=== PATIENT | male | born 1950 | race Caucasian/White ===

== ENCOUNTER 2017-09-15 19:47 | Emergency (ER) | payer OTHER, MEDICARE ==
[2017-09-15 19:55] VITALS: BP 170/93; PULSE 98; RESP 20; TEMP 98.6; O2SAT 99
--- NOTE | 2017-09-15 20:35 | EDPHY ---
H & P Stated Complaint: Concerned for DVT Time Seen by Provider: 09/15/17 19:50 - Personal History Current Tetanus Diphtheria and Acellular Pertussis (TDAP): Yes - Medical/Surgical History Hx Asthma: No Hx Chronic Respiratory Disease: No Hx Diabetes: No Hx Cardiac Disease: Yes Hx Renal Disease: No Hx Cirrhosis: No Hx Alcoholism: No Hx HIV/AIDS: No Hx Splenectomy or Spleen Trauma: No Other PMH: GERD, coronary athlerscierlosis - Social History Smoking Status: Never smoked Constitutional: Initial Vital Signs Temperature (C) 37.0 C 09/15/17 19:53 Heart Rate 98 09/15/17 19:53 Respiratory Rate 20 09/15/17 19:53 Blood Pressure 170/93 H 09/15/17 19:53 O2 Sat (%) 99 09/15/17 19:53 O2 Delivery Mode Room Air Allergies/Adverse Reactions: No Known Allergies Allergy (Unverified 09/15/17 19:50) Home Medications: Medication Instructions Recorded Aspirin 09/15/17 Carvedilol 09/15/17 Chromium 09/15/17 Cialis 09/15/17 Cinnamon 09/15/17 Endur-Acin 09/15/17 Fish Oil 1,000 mg Capsule 09/15/17 Irbesartan 09/15/17 Potassium Chloride [Klor-Con] 09/15/17 Medical Decision Making - Diagnostics Imaging: Discussed imaging studies w/ call or contact centre operator Radiologist ED Course/Re-evaluation: CHIEF COMPLAINT: Swollen left leg HISTORY OF PRESENT ILLNESS: The patient is a 67 y/o male complaining of left lower leg swelling onset 4 days ago. He fell over a week ago when he slipped on ice, but did not think he injured his leg at that time. He has occasional "twinges" in his left calf for the last 2-3 days. He denies any recent long travel or long sedentary periods. He denies recent illness or trauma. No fever, rash, chest pain, dyspnea, or other symptoms. REVIEW OF SYSTEMS: A 10 point review of systems was performed and is negative with the exception of the elements mentioned in the history of present illness. PHYSICAL EXAM: HR, BP, O2 Sat, RR. Temp noted General Appearance: Alert, well hydrated, appropriate, and non-toxic appearing. Head: Atraumatic without scalp tenderness or obvious injury Eyes: Pupils equal, round, reactive to light and accommodation, EOMI, no trauma , no injection. Nose: Atraumatic, no rhinorrhea, clear. Throat: There is no erythema or exudates, no lesions, normal tonsils, mucus membranes moist. Neck: Supple Respiratory: No retractions, no distress, no wheezes, and no accessory muscle use. Lungs are clear to auscultation bilaterally. Cardiovascular: Regular rate and rhythm, no murmurs, rubs, or gallops. Left dorsalis pedis and posterior tibial pulses intact. Good capillary refill all extremities. Gastrointestinal: Abdomen is soft, non-tender, non-distended, no masses, no rebound, no guarding, no peritoneal signs. Musculoskeletal: Normal active ROM of all extremities, atraumatic. Minimal left ankle swelling. Neurological: Alert, appropriate, and interactive. The patient has non-focal cranial nerves, motor, sensory, and cerebellar exam. Skin: No rashes, good turgor, no nodules on palpation. PAST MEDICAL HISTORY: Gout PAST SURGICAL HISTORY: Noncontributory SOCIAL HISTORY: . Lives in [place]. Employed. DIAGNOSTICS/PROCEDURES/CRITICAL CARE TIME: Left leg US: negative for DVT DIFFERENTIAL DIAGNOSIS: The differential diagnosis for the patient's leg swelling included but was not limited to muscle strain, hypoalbuminemia, congestive heart failure, cor pulmonale, venous stasis, trauma, and DVT. MEDICAL DECISION [id number] y/o male who presents with concern for a DVT due to a few days of atraumatic lower leg swelling. Exam is largely unremarkable, perhaps minimal left ankle swelling without tenderness. No calf tenderness, swelling, discoloration, or tenseness. No systemic symptoms and minimal risk for DVT or PE. Plan for lower extremity US. Leg US is negative for DVT. Discussed findings with the patient. He will be discharged home with standard muscle strain care and follow up instructions. Return precautions given. He is comfortable with this plan. Return precautions discussed. Departure - Departure Disposition: Home, Routine, Self-Care Clinical Impression: Muscle strain of left lower leg Qualifiers: Encounter type: initial encounter Qualified Code(s): S86.912A - Strain of unspecified muscle(s) and tendon(s) at lower leg level, left leg, initial encounter Condition: Good Instructions: Muscle Strain (ED) Additional Instructions: Follow up with your orthopedist or primary care provider for unimproved symptoms over the next 2-3 days. You can try applying heat or ice to sore areas. Tylenol and ibuprofen as directed on the packaging if needed for pain over the next few days. Return to the ED for chest pain, shortness of breath, or other worsening of condition. Referrals: Jorge Bloom MD [Medical Doctor] - As per Instructions Report Scribed for: Tacos Simmons Report Scribed by: Monet Elizabeth Date of Report: 09/15/17 Time of Report: 20:36
== END 2017-09-15 20:40 | disposition home or self-care (01) ==
DX: S86.912A Strain of unspecified muscle(s) and tendon(s) at lower leg level, left leg, initial encounter (principal); I25.10 Atherosclerotic heart disease of native coronary artery without angina pectoris; Z79.82 Long term (current) use of aspirin; W00.0XXA Fall on same level due to ice and snow, initial encounter; Y99.8 Other external cause status; Y93.89 Activity, other specified

== ENCOUNTER → 2018-02-19 | Outpatient (CLI) | payer OTHER, MEDICARE ==
[~2018-02-19] MED LIST: GADOBUTROL 10 ML VIAL IVP ONE
== END ==
LOC: FIMAGING 12:37
PROVIDERS: ATTEND Specialist
DX: N40.0 Benign prostatic hyperplasia without lower urinary tract symptoms (principal)
CPT/HCPCS: 72197; 76377; A9585